=== PATIENT | female | born 1960 | race Caucasian/White ===

== ENCOUNTER 2017-02-21 09:40 | Emergency (ER) | payer OTHER ==
[2017-02-21 09:51] VITALS: BP 134/77; PULSE 90; TEMP 97.8; BMI 26.1
--- NOTE | 2017-02-21 11:10 | PDOC ---
History of Present Illness - General Chief Complaint: Injury Stated Complaint: FALL/INJURY Time Seen by Provider: 02/21/17 09:59 History Source: Patient Exam Limitations: No Limitations - History of Present Illness Initial Comments: 02/21/17 11:04 CHIEF COMPLAINT: Patient was walking down the stairs, one of the stairs was short she missed a step and fell forward, it was the bottom step Patient states in order to protect her face she fell and hit her right side now with right lateral ankle pain, right lateral rib pain and right lateral hip pain. HISTORY OF PRESENT ILLNESS: Patient is a 56-year-old female, history of hypertension, history of chronic low back pain with chronic pain management. Patient states she was visiting from [place] was walking down the steps and the bottom step was short she fell forward trying to protect her face she fell on her right side now with right lateral rib pain, right hip pain and right lateral ankle pain. Denies hitting her head, no LOC. Denies any other further injury. MEDS: See medication list ALLERGIES: Dexamethasone, Toradol, tramadol PCP: In [place], name unknown REVIEW OF SYSTEMS: GENERAL/CONSTITUTIONAL: Awake alert and oriented HEAD, EYES, EARS, NOSE AND THROAT: No change in vision. No facial edema, no bruising. NO active bleeding. Nares intact. RESPIRATORY: No cough, wheezing, or hemoptysis. CARDIAC: Denies chest pain, no shortness of breathe. MUSCULOSKELETAL: No spinal point tenderness, Good ROM to all four extremities. NO CVA tenderness. No lateral neck pain. Pain to right lateral ribs with no bruising, pain to right lateral ankle with no edema or swelling or bruising, pain to right hip with no bruising. Able to ambulate without difficulty. GI/: Denies abdominal pain, no nausea or vomiting, no bloody stool, no Hematuria. SKIN : No erythema or bruising noted. No abrasion or lacerations. NEUROLOGIC: No loss of consciousness, no numbness or tingling. PHYSICAL EXAM: GENERAL: Awake and alert and oriented x3. EYES: The pupils are equal, round, and reactive to light, with clear, conjunctiva. Good extraocular movement. No nystagmus NOSE: No nasal trauma . Midface stable MOUTH: Teeth intact. EARS: The ear canals and tympanic membranes are normal without trauma. No drainage. NECK: No Lower cervical C-spine tenderness, no pain with chin to chest. CHEST: The lungs are clear without crackles, or wheezes. No subcutaneous emphysema. No crepitus. HEART: Heart is regular rhythm, with normal S1 and S2, no murmurs. ABDOMEN: The abdomen is soft and nontender with normal bowel sounds. There is no guarding or rebound. MUSCULOSKELETAL: No spinal point tenderness. No bruising or erythema. Pelvis stable. EXTREMITIES: Extremities are normal. No visible traumatic injury. Pain to right lateral ribs with no bruising, pain to right lateral ankle with no edema or swelling or bruising, pain to right hip with no bruising. Able to ambulate without difficulty. NEUROLOGICAL:Mental status: The patient is oriented x3. No Generalized headache , Romberg - Cranial nerves: Cranial nerves II through XII are intact Motor: The upper extremities are 5 over 5 in all muscle groups. The lower extremities are 5 over 5 in all muscle groups. Sensation: Sensation is intact to light touch throughout. Cerebellar: Dvofwi-exsjei-nfih is normal in both upper extremities. Heel-knee- leung is normal in both lower extremities. Reflexes: 2+ and symmetric in the upper and lower extremities. Gait: Normal. Heel and toe walking are normal. Tandem gait is normal. SKIN: Without edema, erythema or bruising. No abrasions or lacerations. Past History - Past Medical History Allergies/Adverse Reactions: Allergies Allergy/AdvReac Type Severity Reaction Status Date / Time dexamethasone [From Decadron] Allergy SWELLING Verified 02/21/17 09:43 RASH dexamethasone sod phosphate Allergy SWELLING Verified 02/21/17 09:43 [From Decadron] RASH ketorolac tromethamine Allergy SWELLING Verified 02/21/17 09:43 [From Toradol] RASH ITCHING Penicillins Allergy Rash Verified 02/21/17 09:43 tramadol Allergy Itching Verified 02/21/17 09:45 Home Medications: Ambulatory Orders Citalopram Hydrobromide [Celexa -] 40 mg PO DAILY 02/21/17 Metoprolol Succinate/Hctz [Metoprolol ER-Hctz 50-12.5 mg] 1 each PO BID Oxycodone HCl/Acetaminophen [Percocet 10-325 mg Tablet] 1 each PO Q8H PRN #21 tablet MDD 3 02/21/17 Quetiapine Fumarate [Seroquel -] 200 mg PO BID 02/21/17 Temazepam [Restoril -] 30 mg PO HS 02/21/17 Trazodone HCl 100 mg PO BID 02/21/17 HTN: Yes Suicide Attempt (Hx): No Other medical history: CHRONIC BACK PAIN - Psycho/Social/Smoking Cessation Hx Anxiety: No Suicidal Ideation: No Smoking Status: Yes Smoking History: Current every day smoker Have you smoked in the past 12 months: Yes Number of Cigarettes Smoked Daily: 10 Information on smoking cessation initiated: No Drug/Substance Use Hx: No Substance Use Type: None *Physical Exam - Vital Signs Last Vital Signs Temp Pulse Resp BP Pulse Ox 97.8 F 90 19 134/77 98 02/21/17 09:44 02/21/17 09:44 02/21/17 09:44 02/21/17 09:44 02/21/17 09:44 ED Treatment Course - RADIOLOGY Radiology Studies Ordered: Category Date Time Status FOOT-RIGHT [RAD] Stat Radiology 02/21/17 10:22 Taken HIP & PELVIS-RIGHT [RAD] Stat Radiology 02/21/17 10:22 Taken LEG TIB/FIB-RIGHT [RAD] Stat Radiology 02/21/17 10:22 Taken RIBS RIGHT SIDE [RAD] Stat Radiology 02/21/17 10:22 Taken - Medications Given in the ED: ED Medications Discontinued Medications Generic Name Dose Route Start Last Admin Trade Name Freq PRN Reason Stop Dose Admin Oxycodone/Acetaminophen 2 combo 02/21/17 10:17 02/21/17 10:26 Percocet 5/325 - PO 02/21/17 10:18 2 combo ONCE ONE Administration Medical Decision Making - Medical Decision Making 02/21/17 11:09 A/P: Patient here for evaluation of musculoskeletal pain status post fall pain to right ribs, right lateral ankle and right hip. There is no visible deformity or visible injury, no bruising or erythema edema or deformities. Patient sent to x-ray of right ankle, right ribs and right hip, awaiting results. Patient on chronic pain management, given 2 Percocet while in emergency Department states her last dose was yesterday. 02/21/17 14:03 Xrays Reviewed and negative for acute injury. We'll DC patient home, Percocet as needed for pain, follow-up with orthopedics if pain persists one week. *DC/Admit/Observation/Transfer Diagnosis at time of Disposition: Rib injury Accidental fall Qualifiers: Encounter type: initial encounter Qualified Code(s): W19.XXXA - Unspecified fall, initial encounter Foot injury Qualifiers: Encounter type: initial encounter Laterality: right Qualified Code(s): S99.921A - Unspecified injury of right foot, initial encounter - Discharge Dispostion Disposition: HOME Condition at time of disposition: Good Admit: No - Prescriptions Prescriptions: Oxycodone HCl/Acetaminophen [Percocet 10-325 mg Tablet] 1 each PO Q8H PRN #21 tablet MDD 3 PRN Reason: Pain - Referrals Referrals: Tavo Lundberg MD [Staff Physician] - - Patient Instructions Additional Instructions: Ice and elevate when at rest, if pain persists follow up with orthopedics
== END 2017-02-21 11:31 | disposition home or self-care (01) ==
LOC: JERFT 09:40
DX: S29.9XXA Unspecified injury of thorax, initial encounter (principal); M54.5 Low back pain; M25.571 Pain in right ankle and joints of right foot; W10.8XXA Fall (on) (from) other stairs and steps, initial encounter; Y93.89 Activity, other specified; Y92.89 Other specified places as the place of occurrence of the external cause; Y99.8 Other external cause status; I10 Essential (primary) hypertension; F17.210 Nicotine dependence, cigarettes, uncomplicated
CPT/HCPCS: 71101-TC-RT; 73523-TC; 73590-TC-RT; 73630-TC-RT; 99281-25